=== PATIENT | female | born 1990 | race Caucasian/White ===

== ENCOUNTER 2020-12-13 17:43 | Emergency (ER) | payer OTHER, SELFPAY ==
[2020-12-13] VITALS (20 sets, daily range): BP systolic 118–162; BP diastolic 57–99; PULSE 96–127; RESP 16–22; TEMP 37–37.3; O2SAT 92–100
--- NOTE | ~2020-12-13 | CT_ITS ---
EXAMINATION: CT abdomen pelvis w con INDICATION: Right-sided abdominal pain TECHNIQUE: Computed tomographic images of the abdomen and pelvis were obtained after the administrati on of 100 cc of Omnipaque 350 intravenous contrast. The dose-length product (DLP) was 1587.60 mGy-cm. Automated exposure control and iterative reconstruction technique were employed. COMPARISON: 10/11/2018 FINDINGS: The lung bases are clear. The heart size is normal. The examination is somewhat limited by the patient's body habitus. The gallbladder is surgically absent. The liver, spleen, pancreas, and ad renal glands are normal. The kidneys are unremarkable. The appendix is normal. No pathologically enla rged abdominal or pelvic lymph nodes are identified. There is no free intraperitoneal gas or evidence of bowel obstruction. IMPRESSION: 1. No CT correlate for the patient's symptoms. Reviewed, dictated and finalized at location A.
--- NOTE | 2020-12-13 18:41 | PC.NURSE ---
Urine and labs sent via tube system
[2020-12-13 18:43] LABS: Basophils Absolute Auto 0.1 K/mm3 (0.0-0.1); Basophils Percent Auto 0.7 % (0.2-1.2); Eosinophils Absolute Auto 0.3 K/mm3 (0-0.3); Eosinophils Percent Auto 2.1 % (0-4.4); Hematocrit 41.7 % (37.0-47.0); Hemoglobin 12.8 g/dL (12.0-15.0); Immature Granulocyte Absolute 0.06 K/mm3 (0.00-0.031); Immature Granulocyte Percent A 0.5 % (0-0.5); Lymphocytes Absolute Auto 2.72 K/mm3 (0.9-3.2); Lymphocytes Percent Auto 22.3 % (18.3-44.2); Mean Corpuscular HGB Conc 30.7 g/dl (32-36); Mean Corpuscular Hemoglobin 25.9 pg (26-34); Mean Corpuscular Volume 84.2 fl (80-100); Mean Platelet Volume 10.3 fl (7.4-10.4); Monocytes Absolute Auto 0.9 K/mm3 (0.1-0.6); Monocytes Percent Auto 7.1 % (2.6-8.5); Neutrophils Absolute Auto 8.2 K/mm3 (1.3-6.7); Neutrophils Percent Auto 67.3 % (45.5-73.1); Platelet Count Result 385 k/mm3 (150-375); Red Blood Count 4.95 M/mm3 (4.2-5.4); White Blood Count 12.2 K/mm3 (4.5-10.0)
[2020-12-13 18:48] LABS: Add Urine Microscopic? YES; Amorphous Sediment Urine Few; Appearance Urine Cloudy (Clear); Bacteria Urine 4+ /hpf; Bilirubin Urine Negative (Negative); Blood Urine 1+ (Negative); Color Urine Yellow (Yellow); Glucose Urine UA Negative (Negative); Ketones Urine Negative (Negative); Leukocyte Esterase Ur 3+ LEU/UL (Negative); Mucus Urine Few /lpf; Nitrate Urine Negative (Negative); Protein Urine Negative (Negative); RBC Urine 21-50 /hpf (0-2); Squamous Epithelial Cell Urine Many /hpf (Few); Urobilinogen Urine Negative mg/dL (<2.0); WBC Urine 51-75 /hpf
[2020-12-13 19:08] LABS: Albumin Level 4.4 g/dL (3.5-5.1); Alkaline Phosphatase 86 U/L (38-126); Aspartate Amino Transferase 24 U/L (14-36); Bilirubin,Total 0.4 mg/dL (0.2-1.3); Blood Urea Nitrogen 17 mg/dL (7-17); Carbon Dioxide 24 mmol/L (22-30); Estimated CRCL calculation 185 ml/min; Estimated Glomerular Filt Rate > 60; Glucose 96 mg/dL (65-110)
[2020-12-13] MEDS: MORPHINE SULFATE (*CRX) 4 MG/ML INJ IV PUSH (19:09)
[2020-12-13] MEDS: ONDANSETRON INJ 4 MG/2 ML VIAL IV PUSH (19:09)
[2020-12-13] MEDS: SODIUM CHLORIDE 0.9% IV 1,000 ML 999 ML IV CONT (19:09)
[2020-12-13 19:10] LABS: Alanine Aminotransferase 25 U/L (4-35); Anion Gap 10 mmol/L (8-16); Calcium 9.3 mg/dL (8.4-10.2); Chloride 106 mmol/L (98-107); Lipase 101 U/L (23-300); Potassium 4.3 mmol/L (3.4-5.0); Sodium 140 mmol/L (137-145)
--- NOTE | 2020-12-13 20:08 | ED.ABDPAIN ---
HPI - Abdominal Pain General Chief Complaint: Abdominal Pain Stated Complaint: abd pain Time Seen by Provider: 12/13/20 18:43 History of Present Illness HPI narrative: Patient is a 30-year-old female who presents ER with diffuse abdominal pain. Located in the right upper quadrant and bilateral lower quadrants. Ongoing for the last 2 weeks but increasing intensity. Patient works chronic pain in the area as well since having her gallbladder removed a year ago. No fevers/chills/sweats. She has having diarrhea. No alleviating factors that she reports. No fevers or chills or sweats. Pain is worse with palpation. Related Data Home Medications Medication Instructions Recorded Confirmed escitalopram oxalate [Lexapro] 10 mg PO DAILY 12/13/20 metformin mg PO 12/13/20 norgestrel-ethinyl estradiol tablet 12/13/20 12/13/20 [Low-Ogestrel (28)] Allergies Allergy/AdvReac Type Severity Reaction Status Date / Time amoxicillin Allergy Unknown Hives / Verified 12/13/20 18:34 Red Face morphine Allergy Unknown Nausea and Verified 12/13/20 18:34 Vomiting Penicillins Allergy Unknown Hives / Verified 12/13/20 18:34 Red Face Review of Systems Review of Systems: All systems reviewed & are unremarkable except as noted in HPI and below Constitutional: Constitutional: Denies chills, Denies fever(s) and Denies weakness ENT: Denies nasal congestion and Denies sore throat Gastrointestinal: Gastrointestinal: Reports abdominal pain, Reports diarrhea, Denies nausea and Denies vomiting Genitourinary: Genitourinary: Denies dysuria, Denies flank pain and Denies urinary incontinence [facility] Past Medical History Medical History (Updated 12/13/20 @ 20:48 by Marko Dick MD) Polycystic ovarian syndrome Surgical History Surgical History (Updated 12/13/20 @ 20:15 by Marko Dick MD) History of cholecystectomy Social History Social History (Updated 12/13/20 @ 20:15 by Marko Dick MD) Smoking status: Never smoker Gender identity (if verbalized by the patient): Female Exam Narrative: Exam Narrative: GENERAL: Well-appearing, morbidly obese, and in no acute distress. HEAD: Normocephalic, atraumatic. ENT: Mucous membranes moist. CHEST: Clear to auscultation. No respiratory distress. HEART: Tachycardic and regular. Normal peripheral pulses. ABDOMEN: Soft, diffusely tender mostly in the right upper and right lower quadrants, no guarding, protuberant abdomen. EXTREMITIES: Normal range of motion. No edema. SKIN: Warm, dry, no rash. NEURO: Alert and oriented x3. PSYCH: Normal mood and affect. Course Course Emergency Course: Patient informed of results. Lower abdominal pain coupled with right upper quadrant pain could reflect ascending UTI on the right side. Discharge home with oral antibiotics. Started on IV ceftriaxone prior to discharge. Pain improved with morphine. Vital Signs Vital signs: Vital Signs Temperature 98.6 F 12/13/20 18:08 Pulse Rate 125 H 12/13/20 18:08 Respiratory Rate 22 H 12/13/20 18:08 Blood Pressure 149/97 H 12/13/20 18:08 Pulse Oximetry 100 12/13/20 18:08 Temperature 99.1 F 12/13/20 18:31 Pulse Rate 127 H 12/13/20 18:31 Respiratory Rate 16 12/13/20 18:31 Blood Pressure 162/99 H 12/13/20 18:31 Pulse Oximetry 99 12/13/20 18:31 MDM - Abdominal Pain Lab Data Result diagrams: 12/13/20 18:37 12/13/20 18:37 Labs: Lab Results 12/13/20 12/13/20 12/13/20 Range/Units 18:36 18:37 18:37 WBC 12.2 H (4.5-10.0) K/mm3 RBC 4.95 (4.2-5.4) M/mm3 Hgb 12.8 (12.0-15.0) g/dL Hct 41.7 (37.0-47.0) % MCV 84.2 (80-100) fl MCH 25.9 L (26-34) pg MCHC 30.7 L (32-36) g/dl RDW 15.0 H (11.5-14.5) % Plt Count 385 H (150-375) k/mm3 MPV 10.3 (7.4-10.4) fl Immature Gran % (Auto) 0.5 (0-0.5) % Neut % (Auto) 67.3 (45.5-73.1) % Lymph % (Auto) 22.3 (18.3-44.2) % [place]
== END 2020-12-13 21:39 | disposition home or self-care (01) ==
PROVIDERS: Emergency Provider Emergency Medicine
DX: N39.0 Urinary tract infection, site not specified (principal); Z79.84 Long term (current) use of oral hypoglycemic drugs; E28.2 Polycystic ovarian syndrome
CPT/HCPCS: 36415; 74177; 80053; 81001; 81025; 83690; 85025; 87086; 87088; 96361; 96365; 96375; 99284; J0696; J2270; J2405; J7030; Q9967

== ENCOUNTER 2022-10-02 17:19 | Outpatient (CLI) | payer OTHER, SELFPAY ==
[2022-10-02 17:45] LABS: Hematocrit 39.9 % (37.0-47.0); Hemoglobin 12.4 g/dL (12.0-15.0); Mean Corpuscular HGB Conc 31.1 g/dl (32-36); Mean Corpuscular Hemoglobin 27.8 pg (26-34); Mean Corpuscular Volume 89.5 fl (80-100); Mean Platelet Volume 10.5 fl (7.4-10.4); Platelet Count Result 317 k/mm3 (150-375); Red Blood Count 4.46 M/mm3 (4.2-5.4); Red Cell Distribution Width 14.6 % (11.5-14.5); White Blood Count 8.2 K/mm3 (4.5-10.0)
== END 2022-10-02 17:20 | disposition home or self-care (01) ==
LOC: ANHLAB 17:21
PROVIDERS: Visit Provider Obstetrics & Gynecology
DX: N92.0 Excessive and frequent menstruation with regular cycle (principal)
CPT/HCPCS: 36415; 85027

== ENCOUNTER 2022-10-26 15:14 | Emergency (ER) | payer OTHER, SELFPAY ==
--- NOTE | ~2022-10-26 | US_ITS ---
EXAMINATION: US pelvic complete DATE: 10/26/2022 17:20 INDICATION: Left lower quadrant pain TECHNIQUE: Multiple transabdominal and endovaginal sonographic images of the pelvis were obtained. COMPARISON: CT, 11/23/2020 FINDINGS: The uterus measures 7.8 x 4.0 x 6.8 cm an IUD is present in the uterus in expected position . The endometrial complex measures 7 mm. The right ovary measures 3.9 x 1.8 x 1.4 cm. The left ovary measures 2.8 x 1.7 x 1.7 cm. There is normal vascular flow in the ovaries. There is no free fluid in the pelvis. IMPRESSION: 1. No sonographic correlate for the patient's symptoms. Reviewed, dictated and finalized at location F.
[2022-10-26 15:15] VITALS: BP 153/96; PULSE 86; RESP 16; TEMP 36.3; O2SAT 100
[2022-10-26 15:59] LABS: Basophils Absolute Auto 0.1 K/mm3 (0.0-0.1); Basophils Percent Auto 0.7 % (0.2-1.2); Eosinophils Absolute Auto 0.1 K/mm3 (0-0.3); Hematocrit 41.5 % (37.0-47.0); Hemoglobin 13.4 g/dL (12.0-15.0); Immature Granulocyte Absolute 0.04 K/mm3 (0.00-0.031); Immature Granulocyte Percent A 0.4 % (0-0.5); Lymphocytes Absolute Auto 2.54 K/mm3 (0.9-3.2); Lymphocytes Percent Auto 25.3 % (18.3-44.2); Mean Corpuscular HGB Conc 32.3 g/dl (32-36); Mean Corpuscular Hemoglobin 28.5 pg (26-34); Mean Corpuscular Volume 88.1 fl (80-100); Mean Platelet Volume 10.7 fl (7.4-10.4); Monocytes Absolute Auto 0.6 K/mm3 (0.1-0.6); Monocytes Percent Auto 6.2 % (2.6-8.5); Neutrophils Absolute Auto 6.7 K/mm3 (1.3-6.7); Neutrophils Percent Auto 66.4 % (45.5-73.1); Platelet Count Result 326 k/mm3 (150-375); Red Blood Count 4.71 M/mm3 (4.2-5.4); Red Cell Distribution Width 14.6 % (11.5-14.5)
[2022-10-26 16:02] LABS: Alanine Aminotransferase 22 U/L (6-35); Albumin Level 4.5 g/dL (3.5-5.1); Alkaline Phosphatase 82 U/L (38-126); Anion Gap 8 mmol/L (8-16); Aspartate Amino Transferase 22 U/L (14-36); Bilirubin,Total 0.2 mg/dL (0.2-1.3); Blood Urea Nitrogen 16 mg/dL (7-17); Carbon Dioxide 26 mmol/L (22-30); Chloride 105 mmol/L (98-107); Estimated CRCL calculation 121 ml/min; Estimated Glomerular Filt Rate > 60; Glucose 88 mg/dL (65-110); Lipase 141 U/L (23-300); Potassium 4.1 mmol/L (3.4-5.0); Sodium 139 mmol/L (137-145)
[2022-10-26 16:08] LABS: Appearance Urine Cloudy (Clear); Bacteria Urine Rare /hpf; Bilirubin Urine Negative (Negative); Blood Urine 3+ (Negative); Color Urine Yellow (Yellow); Glucose Urine UA Negative (Negative); Ketones Urine Negative (Negative); Leukocyte Esterase Ur Trace LEU/UL (Negative); Nitrate Urine Negative (Negative); Non Pathogenic Casts 0-2; Protein Urine Trace mg/dL (Negative); RBC Urine 0-2 /hpf (0-2); Specific Grav Ur 1.006 (1.001-1.035); Squamous Epithelial Cell Urine Few /hpf (Few); Urobilinogen Urine 0.2 mg/dL (<2.0); pH Urine 5.5 (5.0-9.0)
[2022-10-26 16:13] LABS: Add Urine Microscopic? YES
--- NOTE | 2022-10-26 16:49 | ED.FEMALEGU ---
HPI - Female Genitourinary General Chief complaint: Urogenital-Female Stated complaint: menstrual cramps Time Seen by Provider: 10/26/22 16:08 History of Present Illness HPI Narrative: This is a 32-year-old female with past history of PCOS and endometriosis, who presents to the emergency department complaining of severe cramping associated with her menses. Patient states she usually has strong menstrual cramps, but today's pain was rated 8/10 and not controlled despite several doses of Midol. She also complains of sharp left lower quadrant abdominal pain, rated 10/10. She reports normal vaginal bleeding and denies abnormal vaginal discharge or dysuria. She states approximately 1 week ago, she had an endometrial biopsy. Related Data Home Medications Medication Instructions Recorded Confirmed escitalopram oxalate 10 mg tablet 10 mg PO DAILY 12/13/20 10/04/22 (Lexapro) calcium citrate 250 mg PO DAILY 01/25/22 10/04/22 ferrous gluconate 225 mg (27 mg 225 mg PO DAILY 01/25/22 10/04/22 iron) tablet (Fergon) multivitamin 1 tablet PO DAILY 01/25/22 10/04/22 omeprazole 40 mg capsule,delayed 40 mg PO DAILY 01/25/22 10/04/22 release thiamine HCl (vitamin B1) 50 mg 50 mg PO DAILY 01/25/22 10/04/22 tablet vitamin B complex (B 1 tablet PO DAILY 01/25/22 10/04/22 Complex-Vitamin B12 tablet) spironolactone 50 mg tablet 50 mg PO DAILY 03/17/22 10/04/22 copper 380 square mm intrauterine 1 device intrauterine ONCE 04/25/22 10/04/22 device (ParaGard T 380A) bupropion HCl 150 mg 24 hr tablet, 150 mg PO QAM 10/03/22 10/04/22 extended release (Wellbutrin XL) buspirone 15 mg tablet 15 mg PO BID 10/03/22 10/04/22 cyclobenzaprine 10 mg tablet 10 mg PO TID 10/03/22 10/04/22 Allergies Allergy/AdvReac Type Severity Reaction Status Date / Time amoxicillin Allergy Unknown Hives / Verified 10/26/22 15:14 Red Face morphine Allergy Unknown Nausea and Verified 10/26/22 15:14 Vomiting Penicillins Allergy Unknown Hives / Verified 10/26/22 15:14 Red Face codeine AdvReac Severe Cardiac Verified 10/26/22 15:14 arrest Review of Systems Review of Systems: CONSTITUTIONAL: Denies fever, chills, or sweats. CARDIOVASCULAR: Denies chest pain, palpitations, or edema. RESPIRATORY: Denies cough or dyspnea. GASTROINTESTINAL: Left lower quadrant abdominal pain, suprapubic cramping denies nausea, vomiting, or diarrhea. GENITOURINARY: Denies dysuria or hematuria. SKIN: Denies rash or itching. MUSCULOSKELETAL: Denies back pain, joint pain, or myalgia. NEUROLOGIC: Denies headache, numbness, dizziness, or weakness. PSYCHIATRIC: Denies anxiety or depression. [facility] Past Medical History Medical History Anxiety Chronic GERD Endometriosis Hepatic adenoma History of miscarriage Liver disease Polycystic ovarian syndrome Seasonal allergies Surgical History Surgical History History of cholecystectomy History of dilation and curettage History of gastric bypass History of laparoscopy Liver tumor removal Family History Family History Father Alcoholism Sibling Depression Grandparent Alcoholism Asthma Diabetes mellitus Heart disease Cerebrovascular accident Social History Social History Smoking status: Never smoker Alcohol intake: never Substance use: never Lack of Transportation: No Lack of Food: Never True Current Housing: I Have Housing Concerned About Future Housing: No Difficulty Paying Gas/Electric Bills: No Difficulty Paying for Meds: No Currently Unemployed: No Education: Bachelor's Degree Difficulty w/ Childcare or Family Care: No Living arrangements: with roommate(s) Gender identity (if verbalized by the patient): Female Exam Narrative: GENERAL
--- NOTE | 2022-10-26 17:06 | PC.NURSE ---
pt in ultrasound at this time.
[2022-10-26] MEDS: KETOROLAC 30 MG/ML VIAL (*BKC) IV PUSH (17:15)
[2022-10-26 17:20] VITALS: PULSE 61; RESP 17; O2SAT 100
[2022-10-26 18:24] VITALS: BP 123/78; PULSE 62; RESP 16; O2SAT 100
== END 2022-10-26 18:26 | disposition home or self-care (01) ==
PROVIDERS: Emergency Medicine; Emergency Provider Preventive Medicine Aerospace Medicine
DX: N94.6 Dysmenorrhea, unspecified (principal); N80.9 Endometriosis, unspecified; E28.2 Polycystic ovarian syndrome; K21.9 Gastro-esophageal reflux disease without esophagitis; K76.9 Liver disease, unspecified; F41.9 Anxiety disorder, unspecified
CPT/HCPCS: 36415; 76856; 80053; 81001; 81025; 83690; 85025; 87086; 96374; 99284; J1885